=== PATIENT | female | born 1945 | race Asian ===

== ENCOUNTER 2020-08-30 13:16 | Inpatient (IN) | payer OTHER, SELFPAY ==
[~2020-08-30] VITALS: Ht 152.4 cm; Wt 54.0 kg
--- NOTE | 2020-08-30 13:16 | NUR ---
Placed in room 8. Placed on vehicle monitor technician, blood pressure machine and pulse oximeter. To gown for exam. Side rails up.
[2020-08-30 13:40] VITALS: BP_SYST 140
--- NOTE | 2020-08-30 13:40 | NUR ---
Pt came to ER for desaturation, O2 sat 88% on RA currently placed on 4L via nasal cannula. Pt resting in [facility], no distress at this time, VSS
--- NOTE | 2020-08-30 13:55 | NUR ---
ER at bedside examining patient.
[2020-08-30 14:11] LABS: BILIRUBIN,URINE NEGATIVE (NEGATIVE); CLARITY/URINE SL CLOUDY (CLEAR); COLOR,URINE YELLOW (YELLOW); GLUCOSE,URINE 3+ (NEGATIVE); KETONES,URINE 1+ (NEGATIVE); LEUKOCYTE ESTERASE ,URINE NEGATIVE (NEGATIVE); NITRITE, URINE POSITIVE (NEGATIVE); PROTEIN URINE 2+ (NEGATIVE); UROBILINOGEN,URINE 0.2 (0.2-1.0)
[2020-08-30 14:14] LABS: BASOPHILS % (AUTO) 0.3 % (0.0-2.0); EOSINOPHILS % (AUTO) 0.1 % (0.0-4.0); HEMATOCRIT 37.7 % (36-48); HEMOGLOBIN 12.5 g/dL (12.0-16.0); LYMPHOCYTES # (AUTO) 0.8 K/uL (1.0-5.5); LYMPHOCYTES % (AUTO) 11.2 % (20.5-51.5); MEAN CORPUSCULAR HEMOGLOBIN 29 pg (27-31); MEAN CORPUSCULAR HGB CONC 33 % (32-36); MEAN CORPUSCULAR VOLUME 87 fL (79.0-98.0); MONOCYTES # (AUTO) 0.7 K/uL (0.0-1.0); MONOCYTES % (AUTO) 9.3 % (1.7-9.3); NEUTROPHILS # (AUTO) 5.9 K/uL (1.8-7.7); NEUTROPHILS % (AUTO) 79.1 % (40.0-70.0); PLATELET COUNT (AUTO) 193 K/uL (130-430); RED BLOOD CELL COUNT(AUTO) 4.33 MIL/uL (4.2-6.2); RED CELL DISTRIBUTION WIDTH 15.7 % (9.0-15.0); WHITE BLOOD COUNT (AUTO) 7.5 K/uL (4.8-10.8)
[2020-08-30 14:22] LABS: BLOOD, URINE TRACE (NEGATIVE)
[2020-08-30 14:51] LABS: BACTERIA,URINE MANY /HPF (None Seen); RBC,URINE NONE SEEN /HPF (0-3)
[2020-08-30] MEDS ORDERED: cefTRIAXone 1 GM in D5W 50 ML IV ONE (15:00)
--- NOTE | 2020-08-30 15:00 | NUR ---
Assumed care of patient, report received from MILAN Farmer. Pt currently resting in bed, awaiting bed assignment on Telemetry. V/S stable, no distress noted. Will continue to monitor.
[2020-08-30 15:03] LABS: INR 0.9 (0.8-1.2); PROTHROMBIN TIME 9.4 SECS (9.5-12.5)
[2020-08-30 15:07] LABS: ANION GAP 9 (5-15); CALCIUM 9.4 mg/dL (8.4-11.0); CHLORIDE 99 mmol/L (98-107); CREATININE 1.63 mg/dL (0.55-1.30); POTASSIUM 3.8 mmol/L (3.5-5.1); SODIUM SERUM 137 mmol/L (136-145); UREA NITROGEN, BLOOD 44 mg/dL (8-21)
[2020-08-30 15:14] LABS: ALANINE AMINOTRANSFERASE 29 U/L (12-78); ALBUMIN 2.7 g/dL (3.4-4.8); ASPARTATE AMINOTRANSFERASE 46 U/L (10-37); LACTATE DEHYDROGENASE 361 U/L (81-234); TOTAL BILIRUBIN 0.6 mg/dL (0.0-1.0)
[2020-08-30 15:34] LABS: GLUCOSE 431 mg/dL (70-99)
[2020-08-30] MEDS ORDERED: INSULIN REGULAR, HUMAN 10 UNITS/0.1 ML INJ IVP ONE (15:45)
[2020-08-30] MEDS ORDERED: AZITHROMYCIN 500 MG in NS 250 ML IV ONE (15:45)
[2020-08-30] MEDS ORDERED: DEXAMETHASONE SOD PHOSPHATE 10 MG/ML VIAL IVP ONE (15:45)
[2020-08-30] MEDS ORDERED: cefTRIAXone 1 GM VIAL ONE (15:59)
--- NOTE | 2020-08-30 16:26 | NUR ---
Admit orders received from Dr. Plasencia, pt will go to Tele. TT charge nurse Maeve, she will call me back with a bed.
[2020-08-30] MEDS ORDERED: ASPI-1393 PO (16:44)
[2020-08-30] MEDS ORDERED: ALLO300T2 PO (16:44)
[2020-08-30] MEDS ORDERED: NIFE20CA PO (16:44)
[2020-08-30] MEDS ORDERED: METO50TA7 PO (16:44)
[2020-08-30] MEDS ORDERED: SITA100T11 PO (16:44)
[2020-08-30] MEDS ORDERED: LOSA50TA3 PO (16:44)
[2020-08-30] MEDS ORDERED: SIMV20TA2 PO (16:44)
[2020-08-30] MEDS ORDERED: HYDR12.55 PO (16:44)
[2020-08-30] MEDS ORDERED: GLIP5TAB26 PO (16:44)
--- NOTE | 2020-08-30 16:51 | NUR ---
Med rec and belongings list completed.
--- NOTE | 2020-08-30 16:53 | NUR ---
Patient will be admitted to care of Dr. Plasencia. Admitted to Tele unit. Will go to room 122B. Belongings list completed. Complete and up to date summary report printed. SBAR report to be given at bedside with opportunity for questions. IV site intact and infusing.
[2020-08-30] MEDS ORDERED: AZITHROMYCIN 500 MG/VIAL (ZITHROMAX) IV ONE (16:54)
--- NOTE | 2020-08-30 17:10 | NUR ---
CONSULTATION PAGED/CALLED Reason for Consultation: [] COVID 19, PNA, RESP FAIL Person Who was Notified: [] DR WARREN MD PAGED DIRECTLY Consulting Physician: [] DR KELLEY Tire Maker Specialty: [] PULMO Ordering Physician: [] DR CRAVEN
--- NOTE | 2020-08-30 17:12 | NUR ---
CONSULTATION PAGED/CALLED Reason for Consultation: [] COVID, PNA Person Who was Notified: [] EZEQUIEL Consulting Physician: [] DR RIZWAN RIVERA Floor Winder Specialty: [] ID Ordering Physician: [] DR CRAVEN
--- NOTE | 2020-08-30 17:16 | NUR ---
Admission Note Received patient from ER with diagnosis of covid pna/res failure. Initial Plan of Care discussed-patient verbalized understanding.. Oriented to room, call light, pain management and safety.
[2020-08-30 17:52] VITALS: BP_SYST 103
--- NOTE | 2020-08-30 18:00 | NUR ---
admission assessment pt stable not in acute distress. denies any pain or sob at this time o2 3 l nc saturation 95%.res even and unlabored.safety precautions in place. poc discussed with pt . pt verbalized understanding.call light within reach. bed locked and in low positions. kept comfortable . will continue to monitor
--- NOTE | 2020-08-30 18:45 | NUR ---
episode of sob pt c/o of sob. checked pt o2 sat 88% . increased o2 to 4 l. o2 sat increased to 93% on 4 l. pt felt better. kept comfortable. assisted pt to BSC. .not in acute distress. will continue to monitor.
[2020-08-30] MEDS ORDERED: D5W 1,000 ML IV PRN (18:51)
[2020-08-30] MEDS ORDERED: IPRATROPIUM BROM 0.5 MG/2.5 ML VIAL.NEB (ATROVENT) INH PRN (19:00)
[2020-08-30] MEDS ORDERED: GLUCOSE (DEXTROSE) ORAL GEL -Adults PO PRN (19:00)
[2020-08-30] MEDS ORDERED: *HEPARIN PER PHARMACY XX PRN (19:00)
[2020-08-30] MEDS ORDERED: ALBUTEROL SULFATE 0.083% 2.5 MG/3 ML VIAL.NEB INH PRN (19:00)
[2020-08-30] MEDS ORDERED: NACL 0.9% 1,000 ML IV SCH (19:00)
[2020-08-30] MEDS ORDERED: DEXTROSE 50% JECT 50 ML DISP.SYRIN IVP PRN ×2 (19:00)
[2020-08-30 19:14] VITALS: BP_SYST 103
[2020-08-30] MEDS ORDERED: HEPARIN SODIUM,PORCINE 5,000 UNITS/ML VIAL IVP ONE (19:15)
--- NOTE | 2020-08-30 19:15 | NUR ---
closing notes pt stable not in acute distress. kept comfortable e sr on tele. o2 sat 94% on 4lnc. report given to kaitlynn YATES.
--- NOTE | 2020-08-30 19:30 | NUR ---
Opening notes Received report. Patient is resting in bed, no signs of distress noted. Breathing even and unlabored on 4 L NC. No complaints of SOB. IV patent and intact to right wrist 20 gauge. Updated patient on plan of care and oriented patient to room and call light. Patient verbalized understanding. Provided patient with coffee, patient ate about 50% of dinner. No other needs. Call light with the patient. Safety precautions in place.
[2020-08-30] MEDS: ALBUTEROL SULFATE 0.083% 2.5 MG/3 ML VIAL.NEB INH SCH (20:01)
[2020-08-30] MEDS: IPRATROPIUM BROM 0.5 MG/2.5 ML VIAL.NEB (ATROVENT) INH SCH (20:01)
--- NOTE | 2020-08-30 20:45 | NUR ---
New IV inserted to right forearm 22 gauge. IVF started. Educated the patient the purpose for IVF, patient verbalized understanding. Assisted patient to bedside commode, patient feeling a little short of breath. O2 sat 95% on 4 L NC. Encouraged patient to take deep breaths through the nose. Patient assisted back into bed, educated patient to lay prone to allow for adequate lung expansion. Patient stated she will try. No other needs. Call light with the patient. Safety precautions in place.
[2020-08-30 21:07] VITALS: BP_SYST 117
[2020-08-30] MEDS: SIMVASTATIN 20 MG TABLET PO SCH (21:09)
[2020-08-30] MEDS: HEPARIN 25,000 UNITS/D5W 250ML 250 ML IV SCH (21:09)
--- NOTE | 2020-08-30 21:11 | NUR ---
Medications/Heparin drip initiated. Scheduled medications given. Educated the action and side effects of Zocor. Patient verbalized understanding. Informed patient that she will be started on a Heparin drip to prevent/treat blood clots and that her blood will need to be drawn daily/every 6 hours depending on protocol. Informed patient that the heparin drip increases her chances for bleeding, and that the nurse and patient should monitor for bleeding either through bruising, urine or stool. Educated patient that certain drugs/foods may have interactions such as tobacco products, garlic, dacia, green tea, papaya and alfredito. Patient verbalized understanding.
--- NOTE | 2020-08-30 22:10 | NUR ---
SOB Patient stating she feels short of breath. Patient current O2 sat on 4 L NC is 95%. Encouraged patient to take slow deep breaths, patient stated she feels better now. Encouraged patient to lay prone to help lungs expand. Patient states she will try, but is only able to lay on her side. Pillow placed under patient to help offload. No other needs. call light with the patient. Safety precautions in place.
[2020-08-30 23:01] LABS: C-REACTIVE PROTEIN QUANT 18.2 mg/dL (0-0.5)
[2020-08-30] MEDS: INSULIN REGULAR, HUMAN 100 UNITS/ML, 10 ML VIAL (humuLIN R) SUBCUT PRN (23:30)
--- NOTE | 2020-08-30 23:36 | NUR ---
Accucheck 442. Insulin given per sliding scale. Educated the action and side effects of medication. Patient verbalized understanding. Called MD to notify Accucheck 442. MD ordered for an additional 4 units of regular insulin. Will call back MD for clarification of orders.
--- NOTE | 2020-08-30 23:41 | NUR ---
HIGH ALERT NOTE: Called Dr. Brennan back at [phone] identified within the medical roster to verify physician authenticity.
[2020-08-30] MEDS ORDERED: INSULIN REGULAR, HUMAN 100 UNITS/ML, 10 ML VIAL SUBCUT ONE (23:45)
[2020-08-31 00:26] VITALS: BP_SYST 153
--- NOTE | 2020-08-31 00:27 | NUR ---
RN rounds Patient assisted to bedside commode. No signs of distress noted, no shortness of breath noted. O2 sat 94% on 4 L NC. Patient assisted back into bed, no other needs. Call light with the patient. Safety precautions in place.
[2020-08-31] MEDS: IPRATROPIUM BROM 0.5 MG/2.5 ML VIAL.NEB (ATROVENT) INH SCH ×3 (01:28→19:45)
[2020-08-31] MEDS: ALBUTEROL SULFATE 0.083% 2.5 MG/3 ML VIAL.NEB INH SCH (01:28)
--- NOTE | 2020-08-31 02:00 | NUR ---
Dr. Munoz rounds seen and examined patient. Updated MD on patient condition. MD to input new orders. Will follow up on orders.
--- NOTE | 2020-08-31 03:06 | NUR ---
Remdesivir order given to Fiberglass Tube Molder, per HS, Remdesivir is not available at this time. Dr. Munoz made aware and he stated it is okay to start later, when available.
[2020-08-31 03:16] LABS: BASOPHILS % (AUTO) 0.1 % (0.0-2.0); HEMATOCRIT 36.8 % (36-48); LYMPHOCYTES # (AUTO) 0.7 K/uL (1.0-5.5); LYMPHOCYTES % (AUTO) 8.9 % (20.5-51.5); MEAN CORPUSCULAR HEMOGLOBIN 29 pg (27-31); MEAN CORPUSCULAR HGB CONC 33 % (32-36); MEAN CORPUSCULAR VOLUME 88 fL (79.0-98.0); MONOCYTES # (AUTO) 0.2 K/uL (0.0-1.0); MONOCYTES % (AUTO) 3.1 % (1.7-9.3); NEUTROPHILS # (AUTO) 6.8 K/uL (1.8-7.7); NEUTROPHILS % (AUTO) 87.9 % (40.0-70.0); PLATELET COUNT (AUTO) 199 K/uL (130-430); RED CELL DISTRIBUTION WIDTH 15.5 % (9.0-15.0); WHITE BLOOD COUNT (AUTO) 7.7 K/uL (4.8-10.8)
[2020-08-31 03:29] LABS: ANION GAP 10 (5-15); CALCIUM 8.7 mg/dL (8.4-11.0); CHLORIDE 102 mmol/L (98-107); CREATININE 1.55 mg/dL (0.55-1.30); GLUCOSE 384 mg/dL (70-99); POTASSIUM 3.5 mmol/L (3.5-5.1); SODIUM SERUM 139 mmol/L (136-145); UREA NITROGEN, BLOOD 41 mg/dL (8-21)
[2020-08-31 03:41] LABS: ALANINE AMINOTRANSFERASE 28 U/L (12-78); ALBUMIN 2.3 g/dL (3.4-4.8); ASPARTATE AMINOTRANSFERASE 47 U/L (10-37); LACTATE DEHYDROGENASE 360 U/L (81-234); TOTAL BILIRUBIN 0.3 mg/dL (0.0-1.0)
[2020-08-31 03:53] LABS: C-REACTIVE PROTEIN QUANT 19.1 mg/dL (0-0.5)
[2020-08-31 04:12] LABS: ERYTHROCYTE SEDIMENTATION RATE 70 MM/HR (0-20)
--- NOTE | 2020-08-31 04:15 | NUR ---
Heparin drip on hold per protocol for PTT 103.1
[2020-08-31] MEDS: HEPARIN 25,000 UNITS/D5W 250ML 250 ML IV SCH (05:15)
--- NOTE | 2020-08-31 05:15 | NUR ---
Heparin drip decreased to 4.5 ml/hr per heparin drip protocol. PTT ordered for 6 hours at 1115.
[2020-08-31] MEDS: INSULIN REGULAR, HUMAN 100 UNITS/ML, 10 ML VIAL (humuLIN R) SUBCUT PRN ×4 (05:39→23:40)
--- NOTE | 2020-08-31 05:45 | NUR ---
Accucheck 307 Insulin given per sliding scale. Educated the action and side effects. Patient verbalized understanding and tolerated well. Assisted patient to bedside commode to void. Patient O2 sat 89%. Encouraged patient to take deep breaths, patient O2 sat 95% and sustaining. Assisted back into bed. No other needs. Call light with the patient. Safety precautions in place.
--- NOTE | 2020-08-31 07:14 | NUR ---
Closing notes Patient is resting in bed, no signs of distress noted. Breathing even and unlabored on 4 L NC. O2 sat 95%. IV patent and intact, infusing fluids. Heparin drip running at 4.5 ml/hr. PTT to be drawn at 1115. All needs met throughout the shift. Call light with the patient. Safety precautions in place. Endorsed care to day shift RN.
--- NOTE | 2020-08-31 07:17 | NUR ---
Opening Note received SBAR report from slate roofer RN, patient resting in bed, respirations even and unlabored on 4L nasal cannula, O2Sat 95%, no acute distress noted, educated patient on use of call light and asked to call for assistance, patient verbalized understanding, call light in reach, bed in low and locked position, bed alarm on.
[2020-08-31] MEDS ORDERED: ALBUTEROL MDI INHALATION 8 GM INH INH PRN (07:30)
[2020-08-31] MEDS: ALLOPURINOL 300 MG TABLET (ZYLOPRIM) PO SCH (07:50)
[2020-08-31] MEDS: cefTRIAXone 1 GM in D5W 50 ML IV SCH (07:50)
[2020-08-31] MEDS: NIFEdipine 30 MG TAB.ER.24 PO SCH (07:50)
[2020-08-31] MEDS: ASPIRIN 81 MG TABLET(ECOTRIN) PO SCH (07:50)
[2020-08-31] MEDS: glipiZIDE XL 5 MG TAB ( GLUCOTROL XL) PO SCH (07:52)
[2020-08-31 08:00] VITALS: BP_SYST 135
--- NOTE | 2020-08-31 08:10 | NUR ---
Physician Rounds Dr. Villafana at bedside examining patient, informed her that per assistant casino shift manager RN patient occasionally destats to 88% on 4L, current O2Sat 95% on 4L nasal cannula, Dr. Villafana reduced oxygen to 3.5L nasal cannula, current O2Sat 94%, new orders received for incentive spirometer and new fluid orders received, verified with read back.
--- NOTE | 2020-08-31 08:11 | NUR ---
Incentive spirometer educated patient on purpose and procedure for incentive spirometer use, patient verbalized understanding and returned demonstration to 750ml, encouraged patient to increase volume and use x10 every hour while awake, patient verbalized understanding, patient sitting up eating breakfast.
[2020-08-31] MEDS: METOPROLOL SUCCINATE 50 MG TAB.SR.24H (TOPROL XL) PO SCH (08:12)
[2020-08-31] MEDS: ALBUTEROL MDI INHALATION 8 GM INH INH SCH ×3 (08:30→19:45)
--- NOTE | 2020-08-31 08:35 | NUR ---
Oxygen saturation O2Sat 88% on 3.5L nasal cannula, respiratory therapist Asia at bedside, oxygen increased to 5L nasal cannula, patient tolerating well, O2Sat 94%, no acute distress noted.
[2020-08-31] MEDS: AZITHROMYCIN 500 MG in NS 250 ML IV SCH (08:59)
--- NOTE | 2020-08-31 09:45 | NUR ---
IV access/bedside commode patient complaint of discomfort at IV site, patient requesting to have IV catheter removed, catheter removed, catheter intact, some bleeding noted at IV site, pressure held for 5 minutes, bleeding stopped, educated patient on purpose and procedure for placement of new IV catheter, patient verbalized understanding and is agreeable for catheter placement, IV catheter placed to left forearm, 22G, flushes easily with blood return, patient tolerated well, patient requesting to use bedside commode, assisted patient to use bedside commode, patient voided and had small bowel movement, patient cleaned, linen and gown changed, patient resting in bed, respirations even and unlabored, no acute distress noted.
[2020-08-31] MEDS: NACL 0.9% 1,000 ML IV SCH (10:10)
--- NOTE | 2020-08-31 11:40 | NUR ---
Commode assisted patient to use bedside commode, patient voided x1, assisted patient back to bed, patient resting in bed, respirations even and unlabored on room air, no acute distress noted, patient denies any pain.
--- NOTE | 2020-08-31 12:00 | NUR ---
Heparin Drip aPTT result 70.7, per heparin protocol no action required, continue daily aPTT monitoring.
[2020-08-31 12:53] VITALS: BP_SYST 118
--- NOTE | 2020-08-31 14:00 | NUR ---
RN Rounds patient sitting up in bed, patient has been using incentive spirometer x10 every hour as instructed, educated patient on self proning or side lying, encouraged patient to lay on side or self prone as much as possible, patient verbalized understanding.
--- NOTE | 2020-08-31 14:00 | NUR ---
RT NOTE PT ON NC ON 5 L/ AND NOTED TO BE DESATURATING AT 88%. PT THEN PLACED ON OXYIMYZER ON 5 L/M AND SATING 93%. MILAN FERNANDEZ MADE AWARE OF EPISODE AND CHANGE.
--- NOTE | 2020-08-31 14:33 | NUR ---
Bedside Commode patient requesting to use bedside commode, assisted patient to use bedside commode, patient voided x1, assisted patient back to bed, patient resting in bed, respirations even and unlabored on 5L oxymizer, no acute distress noted, patient denies any pain.
--- NOTE | 2020-08-31 15:52 | NUR ---
Oxygen patients O2Sat 86% on 5L oxymizer, oxygen increased to 8L oxymizer, O2Sat 92%, patient tolerating well, no acute distress noted, informed RT Amilcar.
--- NOTE | 2020-08-31 16:35 | NUR ---
Commode assisted patient to use bedside commode, patient voided x1, assisted patient back to bed, patient resting in bed, respirations even and unlabored on oxymizer at 8L, patient denies any pain.
[2020-08-31 16:39] VITALS: BP_SYST 100
--- NOTE | 2020-08-31 18:57 | NUR ---
Bedside Commode patient requesting to use bedside commode, assisted patient to use bedside commode, voided x1, assisted patient back to bed, patient resting in bed, no acute distress noted.
--- NOTE | 2020-08-31 19:21 | NUR ---
Closing Note SBAR report given to receiving RN, patient resting in bed, respirations even and unlabored on 8L oxymizer, heparin drip infusing at 450units/hr, NS at 40ml/hr, patient denies any pain, no acute distress noted, educated patient on use of call light and asked to call for assistance, patient verbalized understanding, call light in reach, bed in low and locked position, bed alarm on, care endorsed to Adrienne YATES.
--- NOTE | 2020-08-31 19:30 | NUR ---
Opening notes Received report. Patient is resting in bed, no signs of distress noted. Breathing even and unlabored on 8 L oximizer. No complaints of SOB. IVF infusing @ 40 ml/hr, and Heparin drip at 450 units/hr. No needs at this time. Call light with the patient. Safety precautions in place. Addendum: 08/31/20 at 2232 by Adrienne Kirby RN Patient able to use incentive spirometer and is able to demonstrate how to use and verbalized she needs to use it 10x an hour. Patient able to inspire 500ml-600ml.
[2020-08-31] MEDS: SIMVASTATIN 20 MG TABLET PO SCH (20:24)
[2020-08-31 20:30] VITALS: BP_SYST 104
--- NOTE | 2020-08-31 20:30 | NUR ---
Bedside commode/Increased oxygen Assisted patient to bedside commode to void. Hygiene care provided by patient. Patient assisted back into bed. O2 sat noted 86%-88% on 8L oximizer. Encouraged patient to take deep breaths, but O2 remained unchanged. Increased oxygen to 9 L, and patient O2 sat only went up to 90%-91%. Increased oxygen to 10L oximizer, O2 sat 93%-94%. Patient has not complained of any shortness of breath or discomfort. RT was informed, stated he will check on her.
--- NOTE | 2020-08-31 21:00 | NUR ---
Dr. Munoz rounds seen and examined patient. Informed MD that patient will not start Remdesivir until tomorrow. MD stated we are waiting for her creatinine to improve to at least 1.2. Patient is on IVF @ 40 ml/hr. Also informed MD that patient's oxygen has been increased to 10 L oximizer. stated that patient may possibly need convalescent plasma, but we will see the labs tomorrow first. I will talk to Dr. Villafana. New orders input by .
--- NOTE | 2020-08-31 22:00 | NUR ---
Bedside commode Assisted to BSC. Patient provided hygiene care. Assisted back into bed. O2 sat on 10 L oximizer is 93%. Encouraged patient to lay prone to help her lungs expand and improve oxygenation. Patient stated she will try. Patient only able to lay on her side at this time. No other needs. Call light with the patient. Safety precautions in place.
--- NOTE | 2020-08-31 23:43 | NUR ---
Bedside commode/Accucheck Assisted to BSC. Patient provided hygiene care. Assisted back into bed. Accucheck 335. Insulin given per sliding scale. Educated the action and side effects of medication. Patient verbalized understanding. Still encouraging patient to lay prone, but patient unable and is laying on her right side. O2 sat on 10 L oximizer is 92%. No shortness of breath noted. No other needs. Call light with the patient. Safety precautions in place.
[2020-09-01] VITALS (13 sets, daily range): BP systolic 100–127
[2020-09-01] MEDS: IPRATROPIUM BROM 0.5 MG/2.5 ML VIAL.NEB (ATROVENT) INH SCH (01:00)
[2020-09-01] MEDS: ALBUTEROL MDI INHALATION 8 GM INH INH SCH ×4 (01:00→19:45)
--- NOTE | 2020-09-01 01:15 | NUR ---
RN rounds Patient is sleeping, no signs of distress noted. Breathing even and unlabored on 10 L oximizer. O2 sat 92%. No needs at this time. Call light with the patient. Safety precautions in place.
--- NOTE | 2020-09-01 03:04 | NUR ---
BSC/pt without O2 Patient had called to go to the commode. Bed alarm heard. RN told patient to wait a moment because RN had to put PPE on . Patient could not wait, and went to commode by herself while removing oxygen. Patient O2 sat on room air was 82%. RN placed 10 L oximizer back on patient and had pt take deep breaths. O2 went up to 93%. Assisted patient back into bed. Educated patient that keeping her oxygen on is very important, and that she should not remove it. Patient verbalized understanding. Highly encouraged patient to lay prone at this time. Patient stated she does not want to right now. Repositioned patient on to her side and placed pillow under her. Informed patient that she will need to be proning throughout the day and sitting up in the chair. Patient verbalized understanding. Call light with the patient. Safety precautions in place.
[2020-09-01] MEDS: INSULIN REGULAR, HUMAN 100 UNITS/ML, 10 ML VIAL (humuLIN R) SUBCUT PRN ×3 (05:59→17:18)
--- NOTE | 2020-09-01 06:00 | NUR ---
Low O2/Accucheck Patient had low O2 when getting up to [facility]. On 10 L oximizer, O2 sat was 83%-85%. Patient stated she was feeling a little dizzy and short of breath. Encouraged patient to take deep breaths, increased O2 to 12 L. Patient O2 went up to 94%. Patient assisted back into bed. O2 put back to 10 L, and O2 sat 90%-92%. RT made aware of situation. Educated patient to lay prone, lay on her side, use the incentive spirometer and to sit up in chair when eating meals. Patient verbalized understanding. No more complaints of dizziness or shortness of breath. Accucheck 223. Insulin given per sliding scale. Educated the action and side effects of medication. Patient verbalized understanding.
--- NOTE | 2020-09-01 07:14 | NUR ---
Closing notes Patient is resting in bed, no signs of distress noted, breathing even and unlabored, no sob noted. Oxygen was increased to 11 L oximizer @0645. O2 sat at this time is 91%. IV patent and intact, no signs of infiltration noted. On Heparin drip at 450 unit/hr. Awaiting PTT results. All needs met throughout the shift. Call light with the patient. Safety precautions in place. Care endorsed to day shift RN.
--- NOTE | 2020-09-01 07:20 | NUR ---
Opening Note received SBAR report from shift stacker RN, patient resting in bed, respirations even and unlabored on 11L oxymizer, O2Sat 91%, no acute distress noted, educated patient on use of call light and asked to call for assistance, patient verbalized understanding, call light in reach, bed in low and locked position, bed alarm on.
[2020-09-01 07:29] LABS: BASOPHILS % (AUTO) 0.2 % (0.0-2.0); HEMATOCRIT 36.9 % (36-48); LYMPHOCYTES # (AUTO) 1.1 K/uL (1.0-5.5); LYMPHOCYTES % (AUTO) 6.9 % (20.5-51.5); MEAN CORPUSCULAR HEMOGLOBIN 28 pg (27-31); MEAN CORPUSCULAR HGB CONC 33 % (32-36); MEAN CORPUSCULAR VOLUME 87 fL (79.0-98.0); MONOCYTES # (AUTO) 1.1 K/uL (0.0-1.0); MONOCYTES % (AUTO) 7.1 % (1.7-9.3); NEUTROPHILS # (AUTO) 13.7 K/uL (1.8-7.7); NEUTROPHILS % (AUTO) 85.8 % (40.0-70.0); PLATELET COUNT (AUTO) 252 K/uL (130-430); RED BLOOD CELL COUNT(AUTO) 4.25 MIL/uL (4.2-6.2); RED CELL DISTRIBUTION WIDTH 15.7 % (9.0-15.0); WHITE BLOOD COUNT (AUTO) 15.9 K/uL (4.8-10.8)
[2020-09-01 07:43] LABS: ANION GAP 8 (5-15); CALCIUM 8.2 mg/dL (8.4-11.0); CHLORIDE 106 mmol/L (98-107); CREATININE 1.18 mg/dL (0.55-1.30); GLUCOSE 233 mg/dL (70-99); POTASSIUM 3.3 mmol/L (3.5-5.1); SODIUM SERUM 141 mmol/L (136-145); UREA NITROGEN, BLOOD 37 mg/dL (8-21)
[2020-09-01] MEDS: glipiZIDE XL 5 MG TAB ( GLUCOTROL XL) PO SCH (07:45)
[2020-09-01] MEDS: ALLOPURINOL 300 MG TABLET (ZYLOPRIM) PO SCH (07:45)
[2020-09-01] MEDS: NIFEdipine 30 MG TAB.ER.24 PO SCH (07:45)
[2020-09-01] MEDS: ASPIRIN 81 MG TABLET(ECOTRIN) PO SCH (07:46)
[2020-09-01 07:49] LABS: ALANINE AMINOTRANSFERASE 24 U/L (12-78); ALBUMIN 2.1 g/dL (3.4-4.8); ASPARTATE AMINOTRANSFERASE 33 U/L (10-37); LACTATE DEHYDROGENASE 389 U/L (81-234); TOTAL BILIRUBIN 0.2 mg/dL (0.0-1.0)
--- NOTE | 2020-09-01 08:05 | NUR ---
Bedside Commode/Breakfast assisted patient to use bedside commode, voided x1, assisted patient back to bed, provided patient with breakfast tray, educated patient on orders to sit up in chair for all meals, patient refusing to sit up in chair for breakfast, she states that she does not feel well enough right now, per patient she will try to sit up in chair for lunch, will reinforce education at lunch, patient sitting up in bed eating breakfast.
[2020-09-01] MEDS: METOPROLOL SUCCINATE 50 MG TAB.SR.24H (TOPROL XL) PO SCH ×2 (08:11→08:19)
[2020-09-01] MEDS: NACL 0.9% 1,000 ML IV SCH (08:11)
[2020-09-01] MEDS: cefTRIAXone 1 GM in D5W 50 ML IV SCH (08:11)
--- NOTE | 2020-09-01 08:35 | NUR ---
Physician Rounds Dr. Villafana at bedside examining patient, informed her that patient is sitting up in bed eating breakfast instead of the chair because patient states she does not feel well enough to be in chair for breakfast, informed her that patient is currently on 11L oxymizer O2Sat 90%.
[2020-09-01 09:13] LABS: C-REACTIVE PROTEIN QUANT 6.6 mg/dL (0-0.5)
[2020-09-01] MEDS: ACETAMINOPHEN 325 MG TABLET PO PRN ×2 (09:22→18:33)
[2020-09-01] MEDS: AZITHROMYCIN 500 MG in NS 250 ML IV SCH (09:22)
--- NOTE | 2020-09-01 09:24 | NUR ---
Heparin Drip PTT 50.7, per heparin protocol no action required, continue daily PTT monitoring, continued infusing heparin at 450 units/hr.
[2020-09-01] MEDS: HEPARIN 25,000 UNITS/D5W 250ML 250 ML IV SCH (09:27)
--- NOTE | 2020-09-01 09:55 | NUR ---
Bedside Commode patient requesting to use bedside commode, assisted patient to bedside commode, voided x1, assisted patient back to bed, minimal court assistant required, patient resting in bed, IV sites clean, dry, intact, and infusing well, no redness or swelling noted, patient reports pain is controlled at this time.
--- NOTE | 2020-09-01 11:05 | NUR ---
Physician Rounds rounds with Dr. Plasencia, informed him that patient is currently on 11L oxymizer, O2Sat 90-92%, informed him that patients potassium is 3.3, per physician he will enter orders, per Dr. Plasencia he will call the patients family.
--- NOTE | 2020-09-01 11:55 | NUR ---
IV access/Oxygen patient complaint of pain at IV site to right forearm, patient requesting to have IV catheter removed and placed elsewhere, IV catheter removed, catheter intact, no bleeding, educated patient on purpose and procedure for new IV catheter placement, patient verbalized understanding and is agreeable for IV catheter placement, RN attempted to place IV to right hand, unsuccessful, Rachelle RN placed IV to left hand, 22G, flushes easily with blood return, patient tolerated well, patient sitting up in bed, O2Sat 86%, encouraged patient to do deep breathing, O2Sat sustained at 86% for several minutes, increased oxygen to 12L oxymizer, called RT to bedside, RT provided breathing treatment, current O2Sat 92% on 12L oxymizer, patient sitting up in bed eating lunch, per patient she does not want to be sitting up in a chair at this time.
[2020-09-01] MEDS: DEXAMETHASONE SOD PHOSPHATE 10 MG/ML VIAL IVP SCH (13:15)
--- NOTE | 2020-09-01 13:40 | NUR ---
Critical Lab spoke with Dr. Michoacano Munoz, informed him of critical lab urine culture positive for e-coli/MDRO, informed him of sensitivity and antibiotics patient is currently receiving, new orders received for plasma, verified with read back.
--- NOTE | 2020-09-01 14:05 | NUR ---
PAGED DR ALEJANDRA KELLEY FOR ORDERS PAGED [phone]
--- NOTE | 2020-09-01 14:21 | NUR ---
Oxygen patient currently on nonrebreather at 15L, O2Sat 90%, orders to transfer to ICU, RT preparing biPAP, patient awake and alert, patient states "I'm okay", ICU charge nurseMILAN Bledsoe aware of transfer order, awaiting ICU bed for transfer.
--- NOTE | 2020-09-01 15:11 | NUR ---
Transfer to ICU patient transferred to ICU bed 1 via gurney on 15L nonrebreather and court recording monitor, bedside SBAR report given to receiving RN, patient connected to ICU court recording monitor, all belongings brought with patient, patient is awake and alert x4, RT placed patient on biPAP, IV sites clean, dry, and intact, no bleeding noted, COVID [address], care endorsed to Quoc YATES.
--- NOTE | 2020-09-01 15:15 | NUR ---
ICU Opening Note Received bedside report from endorsing RN for continuation of care. Received patient AAOx4, patient denies any pain or SOB at this time. Patient states she feels fine. Patient is currently being placed on BIPAP by RT per MD order. No signs or symptoms of acute distress noted. Bed locked in lowest position, bed alarm on, and call light within reach. Education provided on use of call light and patient verbalized understanding.
--- NOTE | 2020-09-01 15:40 | NUR ---
Called family lithopone charger Zeny called and spoke with patients louisa Forte and informed her that patient has been transferred to ICU.
--- NOTE | 2020-09-01 15:56 | NUR ---
Dr. Villafana at bedside examining patient.
--- NOTE | 2020-09-01 17:30 | NUR ---
Bedpan Assisted patient to use bedpan, patient voided. Pericare done. Patient tolerated well, no signs or symptoms of acute distress noted.
--- NOTE | 2020-09-01 18:15 | NUR ---
Oxygen Patient complaining of discomfort from BIPAP. Patient placed on nonrebreather at 15 L, satting 94%. Patient denies any pain or SOB at this time. No signs or symptoms of acute distress noted.
--- NOTE | 2020-09-01 18:20 | NUR ---
Oxygen Patient placed on oximizer at 15 L and states, "I feel more comfortable with this one." Patient satting at 91% with non-labored breathing. Patient denies any SOB. No signs or symptoms of acute distress noted.
--- NOTE | 2020-09-01 19:11 | NUR ---
Closing Note Endorsed bedside report to oncoming RN using SBAR approach for continuation of care.
--- NOTE | 2020-09-01 19:30 | NUR ---
Opening note Received report and assumed care. Patient in isolation for Covid19. NRM im place due to patient reporting bipap is "uncomfortable" Patient was informed bipap is needed for night time. IVF infusing to peripheral site and heparin infusing as per pharmacy. patient tolerating well. Requires assistance with repositioning and setting up dinner; self feeder. No signs of respiratory distress noted but low O2 sats noted at times. Encouraged to deep breath and to use incentive spirometer. will continue to monitor.
[2020-09-01] MEDS: SIMVASTATIN 20 MG TABLET PO SCH (20:33)
[2020-09-02] VITALS (22 sets, daily range): BP systolic 106–133
--- NOTE | 2020-09-02 00:20 | NUR ---
assessment completed and repositioned for comfort. Patient requires bedpan for urination; able to turn side to side.
--- NOTE | 2020-09-02 03:25 | NUR ---
tolerating bipap; no signs of distress or discomfort as patient resting comfortably with eyes closed.
[2020-09-02 05:49] LABS: BASOPHILS % (AUTO) 0.1 % (0.0-2.0); HEMATOCRIT 35.4 % (36-48); HEMOGLOBIN 11.3 g/dL (12.0-16.0); LYMPHOCYTES # (AUTO) 0.7 K/uL (1.0-5.5); LYMPHOCYTES % (AUTO) 5.4 % (20.5-51.5); MEAN CORPUSCULAR HEMOGLOBIN 28 pg (27-31); MEAN CORPUSCULAR HGB CONC 32 % (32-36); MEAN CORPUSCULAR VOLUME 87 fL (79.0-98.0); MONOCYTES # (AUTO) 0.8 K/uL (0.0-1.0); MONOCYTES % (AUTO) 6.7 % (1.7-9.3); NEUTROPHILS # (AUTO) 11.1 K/uL (1.8-7.7); NEUTROPHILS % (AUTO) 87.8 % (40.0-70.0); PLATELET COUNT (AUTO) 274 K/uL (130-430); RED BLOOD CELL COUNT(AUTO) 4.06 MIL/uL (4.2-6.2); RED CELL DISTRIBUTION WIDTH 15.7 % (9.0-15.0); WHITE BLOOD COUNT (AUTO) 12.6 K/uL (4.8-10.8)
--- NOTE | 2020-09-02 07:30 | NUR ---
Received patient and given report from [facility] shift nurse. Patient in bed with side rails x 3 up. Call light with in reach.
[2020-09-02 07:59] LABS: CHLORIDE 108 mmol/L (98-107); POTASSIUM 3.6 mmol/L (3.5-5.1); SODIUM SERUM 143 mmol/L (136-145)
[2020-09-02 08:00] LABS: ALANINE AMINOTRANSFERASE 21 U/L (12-78); ANION GAP 8 (5-15); ASPARTATE AMINOTRANSFERASE 32 U/L (10-37); CALCIUM 7.8 mg/dL (8.4-11.0); GLUCOSE 242 mg/dL (70-99); TOTAL BILIRUBIN 0.3 mg/dL (0.0-1.0); UREA NITROGEN, BLOOD 36 mg/dL (8-21)
[2020-09-02 08:01] LABS: ALBUMIN 1.9 g/dL (3.4-4.8)
[2020-09-02] MEDS ORDERED: FUROSEMIDE 20 MG/2 ML VIAL IVP ONE (08:15)
[2020-09-02] MEDS: NIFEdipine 30 MG TAB.ER.24 PO SCH (08:25)
[2020-09-02] MEDS: ASPIRIN 81 MG TABLET(ECOTRIN) PO SCH (08:25)
[2020-09-02] MEDS: AZITHROMYCIN 500 MG in NS 250 ML IV SCH (08:25)
[2020-09-02] MEDS: cefTRIAXone 1 GM in D5W 50 ML IV SCH (08:25)
[2020-09-02] MEDS: METOPROLOL SUCCINATE 50 MG TAB.SR.24H (TOPROL XL) PO SCH (08:26)
[2020-09-02] MEDS: ALLOPURINOL 300 MG TABLET (ZYLOPRIM) PO SCH (08:27)
--- NOTE | 2020-09-02 08:30 | NUR ---
MD Villafana at bed side assessing patient.
[2020-09-02] MEDS: glipiZIDE XL 5 MG TAB ( GLUCOTROL XL) PO SCH (08:31)
--- NOTE | 2020-09-02 09:04 | NUR ---
Nutrition Update Von Scale 18 noted. Pt admitted for COVID pneumonia, respiratory failure. Diet: cardiac BMI: 23.4 kg/m2 RD to follow per nutrition care standards.
--- NOTE | 2020-09-02 09:47 | NUR ---
0830 pt placed on hi flow per dr. chaidez. flow 45 fio2 90-100. sat 93% will cont. to monitor. Addendum: 09/02/20 at 0948 by Miryam Mayes RT Amended: Links added.
--- NOTE | 2020-09-02 10:30 | NUR ---
Witnessed Heparin Drip titration to 550 units/hr.
--- NOTE | 2020-09-02 11:30 | NUR ---
Louis Villafana requesting aguilar catheter due to urgent urination r/t e.coli of the urine, Approved.
--- NOTE | 2020-09-02 12:00 | NUR ---
Lab called the ordered two units of convalescent plasma, stated only one was available. Called MD Munoz to inform, stated first unit can be given as long with in 24 hours.
[2020-09-02] MEDS: DEXAMETHASONE SOD PHOSPHATE 10 MG/ML VIAL IVP SCH (12:06)
--- NOTE | 2020-09-02 12:30 | NUR ---
NINO CATH: # 16 FR Nino catheter with 10 cc bulb inserted with use of sterile technique. Bulb inflated with cc sterile water. Immediate return of 250 cc yellow clear urine noted. Bedside drainage bag placed below level of bladder. Pt tolerated procedure WNL.
[2020-09-02] MEDS ORDERED: ONDANSETRON HCL 4 MG/2 ML VIAL IVP PRN (13:00)
--- NOTE | 2020-09-02 13:00 | NUR ---
MD Munoz at bedside assessing patient, requested antiemetic due to patient's C/O of nausea, new order Zofran 4 mg every 6 hours PRN as needed. Orders placed.
[2020-09-02] MEDS: INSULIN REGULAR, HUMAN 100 UNITS/ML, 10 ML VIAL (humuLIN R) SUBCUT PRN ×3 (13:05→18:19)
--- NOTE | 2020-09-02 13:10 | NUR ---
Md Plasencia at bedside. Request PICC line, approved. Patient gave verbal consent with second nurse verification after education of pros and cons given with verbal feedback received.
[2020-09-02] MEDS: ALBUTEROL MDI INHALATION 8 GM INH INH SCH ×3 (13:55→19:00)
--- NOTE | 2020-09-02 14:55 | NUR ---
Asked patient if there was a family member we can give update or receive consents from in case of emergency or incase the patient wasn't able to do so due to condition, approved louisa Gan number [id number]. Saundra Gan, approved to give consent and be updated on patient's status as needed, also requested to face time patient at 1700.
--- NOTE | 2020-09-02 15:00 | NUR ---
Called admissions to inform of addition to family on list.
--- NOTE | 2020-09-02 15:01 | NUR ---
Picc line performed and X-ray performed.
--- NOTE | 2020-09-02 15:06 | NUR ---
PICC line nurse approved PICC line use.
[2020-09-02] MEDS: ACETAMINOPHEN 325 MG TABLET PO PRN (15:20)
[2020-09-02] MEDS: HEPARIN 25,000 UNITS/D5W 250ML 250 ML IV SCH (15:50)
[2020-09-02] MEDS: NACL 0.9% 1,000 ML IV SCH (16:30)
--- NOTE | 2020-09-02 17:55 | NUR ---
Paged Md Munoz regarding lab informing us that the second unit of convalescent plasma might not be available for a few days.
--- NOTE | 2020-09-02 17:59 | NUR ---
MD Munoz called back, informed of second unit might come back with in a few days not 24 hours. MD Munoz approved first unit can be given. Called lab to inform, stated will have it prepared by 1930.
--- NOTE | 2020-09-02 18:55 | NUR ---
Witnessed Heparin Drip titration to 650 units/hr.
--- NOTE | 2020-09-02 18:55 | NUR ---
Heparin drip increased to 650, second PTT ordered for 0100.
--- NOTE | 2020-09-02 19:13 | NUR ---
Endorsed patient and gave report to NOC shift. Side rails x 3 up. Call light with in reach.
--- NOTE | 2020-09-02 19:23 | NUR ---
Opening Note: Report rcvd from AM RN using SBAR report, patient remains on isolation r/t + Covid Dx. RT in room placing patient back onto BIPAP, tolerating well at this time. No acute respiratory distress noted, bed in lowest locked position with call light in reach, all safety precautions in place. All cares assumed.
[2020-09-02] MEDS: SIMVASTATIN 20 MG TABLET PO SCH (20:16)
--- NOTE | 2020-09-02 21:53 | NUR ---
NSG Rounds: Patient in bed, eyes open responds to verbal commands, provided education on convalescent plasma, pt verbalized understanding bed in lowest locked position with call light in reach. Needs met, patient denies any questions at time.
[2020-09-03] VITALS (24 sets, daily range): BP systolic 96–120
--- NOTE | 2020-09-03 01:05 | NUR ---
CONVALESCENT PLASMA ENDED Pt tolerated transfusion well. VSS. No s/s adverse side effects. Will continue to monitor.
[2020-09-03] MEDS: INSULIN REGULAR, HUMAN 100 UNITS/ML, 10 ML VIAL (humuLIN R) SUBCUT PRN ×4 (01:12→18:19)
[2020-09-03] MEDS: ALBUTEROL MDI INHALATION 8 GM INH INH SCH ×4 (02:07→20:29)
[2020-09-03 05:59] LABS: HEMATOCRIT 32.8 % (36-48); HEMOGLOBIN 10.5 g/dL (12.0-16.0); LYMPHOCYTES # (AUTO) 0.8 K/uL (1.0-5.5); LYMPHOCYTES % (AUTO) 6.1 % (20.5-51.5); MEAN CORPUSCULAR HEMOGLOBIN 28 pg (27-31); MEAN CORPUSCULAR HGB CONC 32 % (32-36); MEAN CORPUSCULAR VOLUME 88 fL (79.0-98.0); MONOCYTES # (AUTO) 1.3 K/uL (0.0-1.0); MONOCYTES % (AUTO) 10.6 % (1.7-9.3); NEUTROPHILS # (AUTO) 10.3 K/uL (1.8-7.7); NEUTROPHILS % (AUTO) 83.3 % (40.0-70.0); PLATELET COUNT (AUTO) 281 K/uL (130-430); RED BLOOD CELL COUNT(AUTO) 3.74 MIL/uL (4.2-6.2); RED CELL DISTRIBUTION WIDTH 15.7 % (9.0-15.0); WHITE BLOOD COUNT (AUTO) 12.4 K/uL (4.8-10.8)
[2020-09-03 06:01] LABS: ALANINE AMINOTRANSFERASE 20 U/L (12-78); ALBUMIN 1.9 g/dL (3.4-4.8); ANION GAP 2 (5-15); ASPARTATE AMINOTRANSFERASE 24 U/L (10-37); C-REACTIVE PROTEIN QUANT 3.5 mg/dL (0-0.5); CALCIUM 7.8 mg/dL (8.4-11.0); CHLORIDE 106 mmol/L (98-107); CREATININE 1.18 mg/dL (0.55-1.30); GLUCOSE 259 mg/dL (70-99); SODIUM SERUM 137 mmol/L (136-145); TOTAL BILIRUBIN 0.2 mg/dL (0.0-1.0); UREA NITROGEN, BLOOD 38 mg/dL (8-21)
--- NOTE | 2020-09-03 07:18 | NUR ---
ENDORSEMENT Pt care endorsed to dayshift RN using nursing SBAR.
--- NOTE | 2020-09-03 07:25 | NUR ---
Opening Note Patient report received via SBAR from endorsing RN
[2020-09-03] MEDS: NIFEdipine 30 MG TAB.ER.24 PO SCH (07:47)
[2020-09-03] MEDS: glipiZIDE XL 5 MG TAB ( GLUCOTROL XL) PO SCH (07:48)
[2020-09-03] MEDS: ASPIRIN 81 MG TABLET(ECOTRIN) PO SCH (07:48)
[2020-09-03] MEDS: ALLOPURINOL 300 MG TABLET (ZYLOPRIM) PO SCH (07:48)
[2020-09-03] MEDS: METOPROLOL SUCCINATE 50 MG TAB.SR.24H (TOPROL XL) PO SCH (07:48)
[2020-09-03] MEDS: cefTRIAXone 1 GM in D5W 50 ML IV SCH (07:48)
[2020-09-03] MEDS: NACL 0.9% 1,000 ML IV SCH ×2 (07:49→20:49)
[2020-09-03] MEDS: AZITHROMYCIN 500 MG in NS 250 ML IV SCH (07:49)
[2020-09-03] MEDS ORDERED: KCL 40 mEq in 100 mL (PREMIX) 100 ML IV ONE (09:00)
--- NOTE | 2020-09-03 09:00 | NUR ---
ROUND Dr. Plasencia in to see patient, no new orders
--- NOTE | 2020-09-03 09:10 | NUR ---
ROUND Dr. Villafana in to see patient, physician entered orders
--- NOTE | 2020-09-03 09:30 | NUR ---
Nursing Note Patient given CHG bath, patient placed on bedpan but patient wasn't able to have a BM at his time. Patient taken off bedpan as requested
--- NOTE | 2020-09-03 09:50 | NUR ---
Nursing Note Patient complained of shortness of breath, patient encouraged to take deep breaths and use IS. Patient's saturation at 87% and still had shortness of breath, RT at bedside. Patient was placed on BiPap
[2020-09-03] MEDS: DEXAMETHASONE SOD PHOSPHATE 10 MG/ML VIAL IVP SCH (10:45)
--- NOTE | 2020-09-03 12:30 | NUR ---
MD CALL Dr. Munoz called regarding patient medication, no new orders
--- NOTE | 2020-09-03 12:40 | NUR ---
Nursing Note medical imaging technician at bedside, chest ultrasound performed as prescribed
[2020-09-03] MEDS ORDERED: KCL 20 mEq in 100 mL (PREMIX) 100 ML IV ONE (13:00)
--- NOTE | 2020-09-03 14:15 | NUR ---
CONVALESCENT PLASMA INITIATION: Consent signed by patient agreeing to administration of plasma. Blood has been type and crossmatched. Plasma sent from blood bank. Information on unit of plasma checked against patient wristband at bedside by two nurses. All information matches. Patient or responsible constitution party informed of potential complications associated with plasma transfusion. Informed of possible transfusion reaction symptoms. Aware of need to notify nurse at once of itching, shortness of breath, flushing, feeling of impending doom, or other symptoms not previously present. Vital signs taken within 5 minutes prior to initiation of transfusion. RN will remain with patient for first 15 minutes of transfusion at which time vital signs will be re-assessed.
--- NOTE | 2020-09-03 14:30 | NUR ---
CONVALESCENT PLASMA ENDED Patient tolerated plasma infusion well, no s/s of reaction noted
[2020-09-03] MEDS: HEPARIN 25,000 UNITS/D5W 250ML 250 ML IV SCH (14:52)
--- NOTE | 2020-09-03 15:10 | NUR ---
Nursing Note Patient asked about code status and patient indicated that she wants to be DNR, patient does not want to be intubated. Message for callback left with Dr. Plasencia
--- NOTE | 2020-09-03 15:15 | NUR ---
Dr. Plasencia made aware pt refused to be intubated.
--- NOTE | 2020-09-03 15:17 | NUR ---
Dietitian Recommendations * Recommend cardiac, chopped diet w/ Ensure Enlive TID (ONS provides 1050 kcal/day, 60 gm protein/day) NATHEN CANTU Please refer to Nutrition Assessment for details. Addendum: 09/03/20 at [address] Amended: Links added.
--- NOTE | 2020-09-03 15:35 | NUR ---
Dr. Villafana made aware that pt refused to be intubated.
[2020-09-03] MEDS: ACETAMINOPHEN 325 MG TABLET PO PRN ×2 (15:49→20:47)
--- NOTE | 2020-09-03 16:45 | NUR ---
Nursing Note Patient facetimed with Graciela Fofana. Niece called for a net application support specialist and patient was able to speak with a Father Enrico on the phone.
[2020-09-03] MEDS: IPRATROPIUM BROM 0.5 MG/2.5 ML VIAL.NEB (ATROVENT) INH SCH (19:00)
--- NOTE | 2020-09-03 19:15 | NUR ---
OPENING NOTE SBAR REPORT RECEIVED FROM HERI YATES. CARE ASSUMED. PT LAYING IN BED. PT COVID (+). ISOLATION PRECAUTIONS STARTED. PT ON BIPAP. BIPAP SETTINGS 15/8. BACK UP RATE: 12, FIO2 100%. O2 SATURATION 90%. PT SINUS RHYTHM ON MONITOR. PT HAS RUE PICC LINE RUNNING NS @ 40 CC/HR AND HEPARIN @ 650 UNITS/HR. PT ALSO HAS RIGHT WRIST 20G AND LEFT WRIST 22G SALINE LOCKED. NO EDEMA NOTED. RADIAL AND PEDAL PULSES PRESENT. ABDOMEN SOFT NON DISTENDED. NION CATHETER IN PLACE FLOWING TO GRAVITY. URINE YELLOW AND CLOUDY. SKIN INTACT. BED LOCKED IN LOWEST POSITION. SAFETY PRECAUTIONS IN PLACE. CALL LIGHT WITHIN REACH. WILL CONTINUE TO MONITOR.
--- NOTE | 2020-09-03 19:29 | NUR ---
CLOSING NOTE Patient report given to nightshift RN via SBAR
[2020-09-03] MEDS: SIMVASTATIN 20 MG TABLET PO SCH (20:47)
[2020-09-04] VITALS (23 sets, daily range): BP systolic 113–146
[2020-09-04] MEDS: INSULIN REGULAR, HUMAN 100 UNITS/ML, 10 ML VIAL (humuLIN R) SUBCUT PRN ×4 (00:45→18:30)
--- NOTE | 2020-09-04 07:27 | NUR ---
CLOSING NOTE PT LAYING IN BED. NO SIGNS AND SYMPTOMS OF DISTRESS NOTED. SBAR REPORT GIVEN TO LYLE MUNOZ RN. CARE ENDORSED.
[2020-09-04 07:50] LABS: ALANINE AMINOTRANSFERASE 38 U/L (12-78); ANION GAP 8 (5-15); CALCIUM 7.7 mg/dL (8.4-11.0); CHLORIDE 112 mmol/L (98-107); CREATININE 1.04 mg/dL (0.55-1.30); GLUCOSE 167 mg/dL (70-99); POTASSIUM 3.8 mmol/L (3.5-5.1); SODIUM SERUM 146 mmol/L (136-145); TOTAL BILIRUBIN 0.2 mg/dL (0.0-1.0); UREA NITROGEN, BLOOD 38 mg/dL (8-21)
--- NOTE | 2020-09-04 08:00 | NUR ---
RT NOTES Took pt off of bipap for breakfast, placed on HFNC 60L 100% saturation mid to high 80s
--- NOTE | 2020-09-04 08:00 | NUR ---
INITIAL NOTES AWAKE, ORIENTED, AFEBRILE, ON BIPAP, REPOSITIONED FOR BREAKFAST. DENIES ANY PAIN, JUST FEEL SHORT OF BREATH. HEPARIN DRIP INFUSING AT 650 UNITS/HR. CALL LIGHT WITHIN REACH. WILL CONTINUE TO MONITOR.
[2020-09-04 08:07] LABS: ASPARTATE AMINOTRANSFERASE 58 U/L (10-37)
[2020-09-04] MEDS: ALBUTEROL MDI INHALATION 8 GM INH INH SCH ×2 (08:21→12:44)
[2020-09-04] MEDS: glipiZIDE XL 5 MG TAB ( GLUCOTROL XL) PO SCH (08:30)
--- NOTE | 2020-09-04 08:30 | NUR ---
PTT IS 50.6. NO ACTION REQUIRED. HEPARIN DRIP STILL AT 650 UNITS/HR. WILL CHECK PTT IN AM PER PROTOCOL.
[2020-09-04] MEDS: cefTRIAXone 1 GM in D5W 50 ML IV SCH (08:32)
--- NOTE | 2020-09-04 09:59 | NUR ---
has soft medium stool, cleaned and repositioned patient. No acute distress noted. will continue to monitor.
[2020-09-04] MEDS: NIFEdipine 30 MG TAB.ER.24 PO SCH (10:16)
[2020-09-04] MEDS: METOPROLOL SUCCINATE 50 MG TAB.SR.24H (TOPROL XL) PO SCH (10:16)
[2020-09-04] MEDS: ALLOPURINOL 300 MG TABLET (ZYLOPRIM) PO SCH (10:16)
[2020-09-04] MEDS: ASPIRIN 81 MG TABLET(ECOTRIN) PO SCH (10:16)
[2020-09-04] MEDS: AZITHROMYCIN 500 MG in NS 250 ML IV SCH (10:17)
--- NOTE | 2020-09-04 12:05 | NUR ---
RT NOTES PT off of bipap for lunch to hfnc 60L 100%
[2020-09-04] MEDS: DEXAMETHASONE SOD PHOSPHATE 10 MG/ML VIAL IVP SCH (12:16)
--- NOTE | 2020-09-04 12:20 | NUR ---
Notes- Trying to feed patient lunch but she is short of breath and unable to eat at this time and she is desating, will put patient back to bipap.
--- NOTE | 2020-09-04 12:35 | NUR ---
RT NOTES Pt did not tolerate HFNC, sat 63% placed back on bipap
--- NOTE | 2020-09-04 13:35 | NUR ---
ANXIETY. PAGED DR KELLEY AND SHE RETURNED THE CALL. REPORTED THAT PT'S RESPIRATORY RATE RANGING BETWEEN 39 TO 42, SATURATION IN THE 80'S, PT ANXIOUS. PATIENT ON BIPAP MACHINE, NO NEW MEDS ORDERED, PT MIGHT GET TO BE BRADYCARDIC WHEN PLACED ON ANTI ANXIETY MEDS, PER .
--- NOTE | 2020-09-04 14:00 | NUR ---
Notes Pt disconnected herself from the bipap tube to the machine, o2 sat went down to 28%, immediately went to check on patient and respiratory therapist at bedside to reconnect patient. O2 sat went up between 68% to 72%. patient continuously being monitored at this time.
--- NOTE | 2020-09-04 15:00 | NUR ---
MD ROUNDS DR. KELLEY HERE AND AWARE OF PATIENT'S O2 SAT AT 82 TO 84% AND NOT GOING UP AT THIS TIME.
--- NOTE | 2020-09-04 15:04 | NUR ---
Lucio dunhamt: I faxed MD progress notes to Consuelo barth per her request to fax#[phone]-- MILAN
--- NOTE | 2020-09-04 18:46 | NUR ---
Notes Arousable, on bipap, O2 sat at 87% at this time.heparin infusing at 650 units/hr. no signs of bleeding noted. will endorse
--- NOTE | 2020-09-04 19:06 | NUR ---
follow up chest xray that was ordered this afternoon. per radiologist they will do it in the morning since its not stat.
--- NOTE | 2020-09-04 19:15 | NUR ---
OPENING NOTE SBAR REPORT RECEIVED FROM LYLE MUNOZ RN. CARE ASSUMED. PT LAYING IN BED. PT COVID (+). ISOLATION PRECAUTIONS IMPLEMENTED. PT ON BIPAP. BIPAP SETTINGS 15/8. BACK UP RATE: 12, FIO2 100%. O2 SATURATION 88%. PT SINUS RHYTHM ON MONITOR. PT HAS RUE PICC LINE RUNNING NS @ 40 CC/HR AND HEPARIN @ 650 UNITS/HR. PT ALSO HAS RIGHT WRIST 20G AND LEFT WRIST 22G SALINE LOCKED. NO EDEMA NOTED. RADIAL AND PEDAL PULSES PRESENT. ABDOMEN SOFT NON DISTENDED. NINO CATHETER IN PLACE FLOWING TO GRAVITY. URINE YELLOW AND CLOUDY. SKIN INTACT. BED LOCKED IN LOWEST POSITION. SAFETY PRECAUTIONS IN PLACE. CALL LIGHT WITHIN REACH. WILL CONTINUE TO MONITOR.
[2020-09-04] MEDS: ACETAMINOPHEN 325 MG TABLET PO PRN (21:51)
[2020-09-04] MEDS: SIMVASTATIN 20 MG TABLET PO SCH (21:51)
[2020-09-05] VITALS (25 sets, daily range): BP systolic 116–177
[2020-09-05] MEDS: INSULIN REGULAR, HUMAN 100 UNITS/ML, 10 ML VIAL (humuLIN R) SUBCUT PRN ×3 (01:05→18:38)
[2020-09-05 07:11] LABS: ANION GAP 14 (5-15); ASPARTATE AMINOTRANSFERASE 84 U/L (10-37); CALCIUM 7.7 mg/dL (8.4-11.0); CHLORIDE 110 mmol/L (98-107); CREATININE 1.08 mg/dL (0.55-1.30); GLUCOSE 248 mg/dL (70-99); POTASSIUM 3.8 mmol/L (3.5-5.1); SODIUM SERUM 146 mmol/L (136-145); TOTAL BILIRUBIN 0.4 mg/dL (0.0-1.0); UREA NITROGEN, BLOOD 36 mg/dL (8-21)
--- NOTE | 2020-09-05 07:19 | NUR ---
CLOSING NOTE PT LAYING IN BED. PT SLEEPING. NO SIGNS OR SYMPTOMS OF DISTRESS NOTED. SBAR REPORT GIVEN TO JOSÉ MIGUEL YATES. CARE ENDORSED.
--- NOTE | 2020-09-05 07:30 | NUR ---
Received patient and report from [facility] shift nurse. Side rails x 3 up. Call light with in reach.
[2020-09-05 07:40] LABS: ALANINE AMINOTRANSFERASE 68 U/L (12-78)
[2020-09-05] MEDS: glipiZIDE XL 5 MG TAB ( GLUCOTROL XL) PO SCH (08:00)
[2020-09-05 08:17] LABS: BASOPHILS % (AUTO) 0.1 % (0.0-2.0); HEMATOCRIT 34.2 % (36-48); HEMOGLOBIN 10.9 g/dL (12.0-16.0); LYMPHOCYTES # (AUTO) 0.5 K/uL (1.0-5.5); LYMPHOCYTES % (AUTO) 2.4 % (20.5-51.5); MEAN CORPUSCULAR HEMOGLOBIN 28 pg (27-31); MEAN CORPUSCULAR HGB CONC 32 % (32-36); MEAN CORPUSCULAR VOLUME 88 fL (79.0-98.0); MONOCYTES # (AUTO) 1.2 K/uL (0.0-1.0); MONOCYTES % (AUTO) 5.5 % (1.7-9.3); NEUTROPHILS # (AUTO) 19.4 K/uL (1.8-7.7); PLATELET COUNT (AUTO) 289 K/uL (130-430); RED BLOOD CELL COUNT(AUTO) 3.89 MIL/uL (4.2-6.2); WHITE BLOOD COUNT (AUTO) 21.1 K/uL (4.8-10.8)
[2020-09-05] MEDS: ALBUTEROL MDI INHALATION 8 GM INH INH SCH ×3 (09:05→19:29)
[2020-09-05] MEDS: cefTRIAXone 1 GM in D5W 50 ML IV SCH (10:04)
[2020-09-05] MEDS: ASPIRIN 81 MG TABLET(ECOTRIN) PO SCH (10:04)
[2020-09-05] MEDS: NIFEdipine 30 MG TAB.ER.24 PO SCH (10:04)
[2020-09-05] MEDS: ALLOPURINOL 300 MG TABLET (ZYLOPRIM) PO SCH (10:04)
[2020-09-05] MEDS: METOPROLOL SUCCINATE 50 MG TAB.SR.24H (TOPROL XL) PO SCH (10:05)
--- NOTE | 2020-09-05 10:30 | NUR ---
Informed MD Villafana patient is anxious AEB frequent moving, attempting to remove leads and mask. Md Villafana ordered new order Ativan 1 mg every 2 hours PRN for anxiety after patient is able to talk to family.
--- NOTE | 2020-09-05 11:15 | NUR ---
Placed ipad at bedside for patient for family to communicate.
[2020-09-05] MEDS ORDERED: HEPARIN SODIUM,PORCINE 5,000 UNITS/ML VIAL ONE (11:22)
[2020-09-05] MEDS: DEXAMETHASONE SOD PHOSPHATE 10 MG/ML VIAL IVP SCH (11:23)
[2020-09-05] MEDS: LORazepam 2 MG/ML VIAL IM PRN ×2 (11:24→14:07)
--- NOTE | 2020-09-05 13:30 | NUR ---
Family arrived at hospital. Was able to see patient outside of room.
--- NOTE | 2020-09-05 16:00 | NUR ---
Requested bilateral wrist restraints from MD Light due to patient's attempt to get out of bed. Order approved.
--- NOTE | 2020-09-05 19:10 | NUR ---
OPENING NOTE SBAR REPORT RECEIVED FROM JOSÉ MIGUEL YATES. CARE ASSUMED. PT LAYING IN BED. PT COVID (+). ISOLATION PRECAUTIONS IMPLEMENTED. PT ON BIPAP. BIPAP SETTINGS 15/8. BACK UP RATE: 12, FIO2 100%. O2 SATURATION 93%. PT SINUS RHYTHM ON MONITOR. PT HAS RUE PICC LINE RUNNING NS @ 40 CC/HR AND HEPARIN @ 850 UNITS/HR. PT ALSO HAS RIGHT WRIST 20G AND LEFT WRIST 22G SALINE LOCKED. NO EDEMA NOTED. RADIAL AND PEDAL PULSES PRESENT. ABDOMEN SOFT NON DISTENDED. NINO CATHETER IN PLACE FLOWING TO GRAVITY. URINE YELLOW AND CLOUDY. SKIN INTACT. BED LOCKED IN LOWEST POSITION. SAFETY PRECAUTIONS IN PLACE. CALL LIGHT WITHIN REACH. WILL CONTINUE TO MONITOR.
--- NOTE | 2020-09-05 19:15 | NUR ---
Endorsed report and patient to NOC shift nurse. Patient in bed with side rails x 3 up. Call light with in reach.
--- NOTE | 2020-09-05 19:30 | NUR ---
Lab called to endorse latest PTT over >150.6. Endorsed to NOC yolette García.
[2020-09-05] MEDS: SIMVASTATIN 20 MG TABLET PO SCH (21:00)
[2020-09-06] VITALS (14 sets, daily range): BP systolic 104–133
[2020-09-06] MEDS: ALBUTEROL MDI INHALATION 8 GM INH INH SCH (01:00)
[2020-09-06] MEDS: INSULIN REGULAR, HUMAN 100 UNITS/ML, 10 ML VIAL (humuLIN R) SUBCUT PRN ×3 (01:21→12:53)
[2020-09-06] MEDS: LORazepam 2 MG/ML VIAL IM PRN ×3 (02:42→12:49)
[2020-09-06] MEDS: NACL 0.9% 1,000 ML IV SCH (07:10)
[2020-09-06] MEDS: HEPARIN 25,000 UNITS/D5W 250ML 250 ML IV SCH (07:10)
[2020-09-06] MEDS ORDERED: HEPARIN 25,000 UNITS/D5W 250ML 250 ML IV ONE (07:25)
--- NOTE | 2020-09-06 07:45 | NUR ---
CLOSING NOTE PT LAYING IN BED. NO SIGNS OR SYMPTOMS OF DISTRESS NOTED. SBAR REPORT GIVEN TO MARICRUZ YATES. CARE ENDORSED.
[2020-09-06] MEDS: glipiZIDE XL 5 MG TAB ( GLUCOTROL XL) PO SCH (08:00)
[2020-09-06 08:01] LABS: CHLORIDE 118 mmol/L (98-107); POTASSIUM 3.2 mmol/L (3.5-5.1)
[2020-09-06 08:15] LABS: ALANINE AMINOTRANSFERASE 50 U/L (12-78); ALBUMIN 1.8 g/dL (3.4-4.8); ANION GAP 9 (5-15); ASPARTATE AMINOTRANSFERASE 28 U/L (10-37); CREATININE 1.02 mg/dL (0.55-1.30); GLUCOSE 185 mg/dL (70-99); SODIUM SERUM 152 mmol/L (136-145); TOTAL BILIRUBIN 0.3 mg/dL (0.0-1.0); UREA NITROGEN, BLOOD 43 mg/dL (8-21)
[2020-09-06] MEDS ORDERED: HEPARIN SODIUM,PORCINE 3000 UNITS/0.6 ML BOLUS IVP PRN (08:15)
[2020-09-06] MEDS ORDERED: HEPARIN SODIUM,PORCINE 2000 UNITS/0.4 ML BOLUS IVP PRN (08:15)
[2020-09-06] MEDS: ASPIRIN 81 MG TABLET(ECOTRIN) PO SCH (09:00)
[2020-09-06] MEDS: NIFEdipine 30 MG TAB.ER.24 PO SCH (09:00)
[2020-09-06] MEDS: ALLOPURINOL 300 MG TABLET (ZYLOPRIM) PO SCH (09:00)
[2020-09-06] MEDS: METOPROLOL SUCCINATE 50 MG TAB.SR.24H (TOPROL XL) PO SCH (09:00)
--- NOTE | 2020-09-06 09:00 | NUR ---
heparin drip increased by 100 for ptt of 42.
--- NOTE | 2020-09-06 09:20 | NUR ---
am po med not given, pt is high risk for aspiration, pt on bipap, unable to tolerate being off bipap as pt desat to 82% within 2 minutes off it.
[2020-09-06] MEDS: cefTRIAXone 1 GM in D5W 50 ML IV SCH (09:37)
[2020-09-06] MEDS ORDERED: POTASSIUM CHLORIDE 40 MEQ in D5W 250 ML IV ONE (10:45)
--- NOTE | 2020-09-06 10:53 | NUR ---
HIGH ALERT NOTE: Dr. CRAVEN WAS HERE AND SEEN PT. MD GAVE ORDER.
[2020-09-06 11:54] LABS: PHOSPHORUS 2.4 mg/dL (2.7-4.5)
[2020-09-06] MEDS: DEXAMETHASONE SOD PHOSPHATE 10 MG/ML VIAL IVP SCH (12:49)
--- NOTE | 2020-09-06 12:49 | NUR ---
PT GIVEN ATIVAN FOR AGITATION AND INCREASED RESP RATE.
--- NOTE | 2020-09-06 13:47 | NUR ---
Nutrition F/U Admitting Diagnosis: COVID pneumonia, respiratory failure Medical History Comment: PMH: DM, CABG per physician notes Pt also found w/ acute hypoxic respiratory failure, COVID-19 pneumonia, DM, sepsis per physician notes 09/06/20: notes: Septicemia SARS-CoV-2 Ag (Rapid) Positive 08/30 Subjective Information: TPN notification received 1145 Pt is COVID-[address] visit was deferred to conserve PPE. RN was unavailable during RD rounds this morning and was also unavailable during RD phone call x 3 attempts. Per EMR review, elevated BG lab values w/ Hx of DM and pt is currently on steroid therapy. Pt w/ COVId-19 Pneumonia, respiratory failure but has refused intubation, on PO diet order but upon review of intake records, pt has not been eating d/t dependence on BiPAP. Pt is on remdesivir and decadron and on comfort measures only. ID saw pt today and MD Munoz ordered for TPN support. TPN notification received at noon. RD to make recommendations. Current Diet Order/Nutrition Support: Cardiac chopped diet Ensure Enlive TID Pertinent Medications: zofran, decadron, glipizide, SSI, Heparin, Remdesivir Pertinent Labs 09/06 Na 152H, K 3.2L, BG 185H, POC BG 204H, BUN 43H, CRE 1.02WNL Skin Integrity Comment: Von scale: 11; no PIs per RN report Current % PO 35% average x10 meals Estimated Energy Expenditure (kcals/day) 7237-3972 kcal/day (MSJ x 1.2-1.5 CBW for sepsis, acute state) Estimated Protein Required (g/day) 81-108 gm/day (1.5-2 gm/kg CBW for sepsis, acute state) Estimated Fluid Required (l/day) 1-1.5 L/day (1 ml/kcal/day for maintenance) Problem/Etiology/Signs/Symptoms Increased nutritional needs related to metabolic demands as evidenced by estimated nutritional requirements for sepsis and acute state. (*ongoing) Altered nutrition related labs r/t endocrine dysfunction and medication interaction AEB elevated BG and POC BG, Hx of DM and steroid therapy. (*new 09/06) Inadequate protein-energy intake r/t respiratory status AEB hypoxia, on BiPAP and PO intake meets <25% of est needs. (*new 09/06) Expected Outcomes/Goals - Monitor initiation of nutrition support, intakes w/ goal of pt meeting greater than 75% of estimated nutritional needs, labs trending WNL, normal GI function, and skin integrity/wt maintenance Dietitian Recommendations * Recommend keep NPO (on BIPAP) * Recommend: D30% AA 10% at 80ml/hr (goal rate), no lipid via central line * Recommend: obtain Triglyceride lab values on next lab draw. Follow Up High Risk: F/U in 2-3days
--- NOTE | 2020-09-06 13:52 | NUR ---
PT SEEN IN ROOM, PT IS PALE, NO SPONTANEOUS BREATHING, NO PULSE , NO HEART SOUND, PUPILS DILATED, NO RESPONSE TO LIGHT. DR BYRNES WAS PAGED TO MAKE AWARE. FULFILLMENT ASSOCIATE TRAEY IS AWARE.
--- NOTE | 2020-09-06 13:52 | NUR ---
Pronouncement of Pt has a DNR order, not on a ventilator. Pt witnessed to go into asystole on the monitor. No palpable pulse, no rise and fall of chest observed. Pupils pinpoint and fixed. No heartbeat heard. Pt pronounced at this time with time of being at 1352. Dr. Plasencia made aware and Dr. Manzo made aware and he informed the family.
--- NOTE | 2020-09-06 14:01 | NUR ---
INFORMED MD'S PATIENT DR. CRAVEN SPOKE TO JEANNIE DIALED [phone] DR. BOSTON SPOKE TO DIALED [phone] DR. RIVERA SPOKE TO ALYX DIALED [phone]
--- NOTE | 2020-09-06 14:35 | NUR ---
Mortuary Pts nephew called, Wily Gan [phone]. He said the pt has arrangements made at [facility]. [facility] called [phone].
--- NOTE | 2020-09-06 15:21 | NUR ---
POST MORTEM CARE DONE. CALLED PT'S NEPHEW NAOMI AND ASKED HIM WHAT HE WANTS WITH PT'S BELONGINGS, HE SAID HE WILL CALL HIS SISTER AND SISTER WILL CALL US BACK.
--- NOTE | 2020-09-06 16:40 | NUR ---
PT'S NIECE PICKED-UP PT'S BELONGINGS.
--- NOTE | 2020-09-06 17:22 | NUR ---
MORTUARY REP KRUNAL ALVA PICKED UP REMAINS.
[2020-09-06] MEDS ORDERED: FAT EMULSIONS 250 ML IV SCH (21:00)
[2020-09-06] MEDS ORDERED: *TPN PER PHARMACY XX PRN (21:00)
[2020-09-06] MEDS ORDERED: K PHOS IV SCH ×8 (21:00)
[2020-09-06] MEDS ORDERED: POTASSIUM ACETATE IV SCH ×8 (21:00)
[2020-09-06] MEDS ORDERED: [UNRECOGNIZED DRUG - OTHER] IV SCH ×8 (21:00)
[2020-09-06] MEDS ORDERED: TPN CENTRAL IV SCH ×8 (21:00)
[2020-09-06] MEDS ORDERED: MVI IV SCH ×8 (21:00)
== END 2020-09-06 13:52 | disposition expired | DRG 871 ==
LOC: SED 13:16 → STU 16:23 → SIC 09-01 15:13
PROVIDERS: ADMIT Internal Medicine Hospice and Palliative Medicine; ATTEND Internal Medicine Hospice and Palliative Medicine
PROC: 5A09557 Assistance with Respiratory Ventilation, Greater than 96 Consecutive Hours, Continuous Positive Airway Pressure (ICD-10-PCS; 2020-09-01)
PROC: XW13325 Transfusion of Convalescent Plasma (Nonautologous) into Peripheral Vein, Percutaneous Approach, New Technology Group 5 (ICD-10-PCS; principal; 2020-09-02)
PROC: XW033E5 Introduction of Remdesivir Anti-infective into Peripheral Vein, Percutaneous Approach, New Technology Group 5 (ICD-10-PCS; 2020-09-05)
PROC: 02HV33Z Insertion of Infusion Device into Superior Vena Cava, Percutaneous Approach (ICD-10-PCS; 2020-09-05)
PROC: B548ZZA Ultrasonography of Superior Vena Cava, Guidance (ICD-10-PCS; 2020-09-05)
DX: A41.89 Other specified sepsis (principal); U07.1 COVID-19; J12.89 Other viral pneumonia; J96.21 Acute and chronic respiratory failure with hypoxia; D68.59 Other primary thrombophilia; I42.9 Cardiomyopathy, unspecified; J44.0 Chronic obstructive pulmonary disease with (acute) lower respiratory infection; N17.9 Acute kidney failure, unspecified; Z66 Do not resuscitate; Z20.828 Contact with and (suspected) exposure to other viral communicable diseases; E87.6 Hypokalemia; E11.65 Type 2 diabetes mellitus with hyperglycemia; E78.5 Hyperlipidemia, unspecified; I10 Essential (primary) hypertension; I25.10 Atherosclerotic heart disease of native coronary artery without angina pectoris; Z51.5 Encounter for palliative care; Z79.01 Long term (current) use of anticoagulants; Z95.1 Presence of aortocoronary bypass graft
CPT/HCPCS: 36415; 36600; 71045; 76604; 80053; 81000-TC; 82550-TC; 82728; 82803-TC; 82962; 83605; 83615-TC; 83735-TC; 83880; 84100-TC; 84478-TC; 84484; 85025; 85379; 85384-TC; 85610-TC; 85651-TC; 85730-TC; 86140; 86886; 86900; 86901; 87040-TC; 87081; 87086; 93005; 94010; 94640; 94660; 94760; 96365; 96367; 96375; 99291; C1751; G0378; J0456; J0610; J0696; J1100; J1644; J1815; J1940; J2060; J2405; J3480; J7030; J7050; J7060; J7613; P9017